=== PATIENT | male | born 1960 | race Caucasian/White ===

== ENCOUNTER 2019-02-03 12:03 | Emergency (ER) | payer OTHER, MEDICAID ==
[~2019-02-03] VITALS: Ht 165.1 cm; Wt 119.0 kg
[2019-02-03 12:06] VITALS: BP 147/72
--- NOTE | 2019-02-03 12:18 | NUR ---
Patient ambulated to bed 7. RN evaluating patient at bedside.
--- NOTE | 2019-02-03 12:20 | NUR ---
Note undone in EDM - 02/03/19 at 1250 by MEDFL C/O LEFT EYE PAIN X 10 DAYS. - EYE DISCHARGE, - REDNESS, + EYE PRESSURE, - BLURRY VISION, DENIES TRAUMA. PT IS AAOX4, VSS AT THIS TIME, BED DOWN, BEDRAIL UP X 1, ER AWARE AND NOTIFIED OF PT STATUS. MED HX: HTN, DM, NSRD
--- NOTE | 2019-02-03 12:20 | NUR ---
C/O LEFT EYE PAIN X 10 DAYS. - EYE DISCHARGE, - REDNESS, + EYE PRESSURE, - BLURRY VISION, DENIES TRAUMA. PT IS AAOX4, VSS AT THIS TIME, BED DOWN, BEDRAIL UP X 1, ER MD AWARE AND NOTIFIED OF PT STATUS. MED HX: HTN, DM, ESRD (RIGHT SIDE)
--- NOTE | 2019-02-03 12:25 | NUR ---
DR. ART AT BEDSIDE ASSESSING PATIENT
--- NOTE | 2019-02-03 13:31 | NUR ---
PT SITTING UP IN BED, RESTING, NO NEW NEEDS AT THIS TIME
--- NOTE | 2019-02-03 13:44 | NUR ---
Dr. Blanco evaluating patient at bedside.
[2019-02-03 13:53] VITALS: BP 143/70
--- NOTE | 2019-02-03 13:53 | NUR ---
Patient discharged with v/s stable. Written and verbal after care instructions given and explained. Patient verbalized understanding. Ambulatory with steady gait. All questions addressed prior to discharge. Advised to follow up with PMD.
== END 2019-02-03 13:53 | disposition home or self-care (01) ==
LOC: MED 12:03
DX: E11.39 Type 2 diabetes mellitus with other diabetic ophthalmic complication (principal); H42 Glaucoma in diseases classified elsewhere; I10 Essential (primary) hypertension
CPT/HCPCS: 99283

== ENCOUNTER 2020-07-04 19:57 | Emergency (ER) | payer OTHER ==
[~2020-07-04] VITALS: Ht 170.2 cm; Wt 124.3 kg
[2020-07-04 19:57] VITALS: BP 178/77
--- NOTE | 2020-07-04 19:57 | NUR ---
PT CHRISTO BAKERS. TAKEN TO BED 4
--- NOTE | 2020-07-04 19:57 | NUR ---
60 Y/O MALE BIBA FROM HOME WITH C/O ABDOMINAL PAIN X 1 DAY. 8/10 PAIN. PT IS CUBAN SPEAKING ONLY. MRI TECH ANDRZEJ KRAUSE STATES PT HAS BEEN VOMITING FLUIDS ONLY SINCE LAST NIGHT. PT HAS ONLY HAD 3 PEACH SLICES, AND GATORADE AT 1530 TODAY. HE MISSED DIALYSIS TODAY DUE TO NOT FEELING WELL. PT WAS GIVE 4MG OF ZOFRAN BY EMS PRIOR TO ARRIVAL AT ER. BG 223 DENIES DIARRHEA, AFEBRILE, SOB, COUGH. R/R EQUAL, AND UNLABORED. SIDE RAIL X2, BED IN LOW POSITION WILL CONTINUE TO MONITOR. NKDA PMH: HTN, ESRD, DM
--- NOTE | 2020-07-04 19:59 | NUR ---
Dr. Levine examining patient.
[2020-07-04] MEDS ORDERED: ONDANSETRON 4 MG/2 ML VIAL IVP ONE (20:05)
[2020-07-04] MEDS ORDERED: MORPHINE SULFATE 4 MG/ML SYR IVP ONE (20:05)
--- NOTE | 2020-07-04 20:23 | NUR ---
PT PLACED ON 2L/MIN NASAL CANNULA
[2020-07-04 20:54] LABS: BASOPHILS % (AUTO) 0.4 % (0.0-2.0); EOSINOPHILS % (AUTO) 0.5 % (0.0-4.0); HEMATOCRIT 40.2 % (36-52); HEMOGLOBIN 13.2 g/dL (12.0-18.0); LYMPHOCYTES # (AUTO) 0.3 K/uL (2.0-11.5); LYMPHOCYTES % (AUTO) 4.8 % (20.5-51.1); MEAN CORPUSCULAR HEMOGLOBIN 30 pg (27-31); MEAN CORPUSCULAR HGB CONC 33 g/dL (33-37); MEAN CORPUSCULAR VOLUME 92.3 fL (80-94); MONOCYTES # (AUTO) 0.3 K/uL (0.8-1.0); MONOCYTES % (AUTO) 4.1 % (1.7-9.3); NEUTROPHILS # (AUTO) 5.9 K/uL (1.8-7.7); NEUTROPHILS % (AUTO) 90.2 % (42.2-75.2); PLATELET COUNT (AUTO) 279 K/uL (140-450); RED BLOOD CELL COUNT(AUTO) 4.36 MIL/uL (4.20-6.10); RED CELL DISTRIBUTION WIDTH 14.7 % (11.6-13.7); WHITE BLOOD COUNT (AUTO) 6.6 K/uL (4.8-10.8)
[2020-07-04 21:07] LABS: ALBUMIN 3.5 g/dL (3.4-5.0); CARBON DIOXIDE 23.3 mmol/L (21-32); MAGNESIUM 2.2 mg/dL (1.8-2.4); PHOSPHORUS 6.1 mg/dL (2.5-4.9); POTASSIUM 5.3 mmol/L (3.5-5.1); TOTAL BILIRUBIN 0.7 mg/dL (0.0-1.0)
--- NOTE | 2020-07-04 21:47 | NUR ---
PT RESTING IN BED QUIETLY. R/R EQUAL, AND UNLABORED. VSS. SIDE RAIL X2, BED IN LOW POSITION. WILL CONTINUE TO MONITOR
[2020-07-04] MEDS ORDERED: SODIUM ZIRCONIUM CYCLOSILICATE 10 GM POWD.PACK PO ONE (22:45)
[2020-07-04 23:14] VITALS: BP 125/59
--- NOTE | 2020-07-04 23:14 | NUR ---
Patient discharged with v/s stable. Written and verbal after care instructions given and explained. Patient verbalized understanding. Wheel Chair Assisted with by caregiver. All questions addressed prior to discharge. Advised to follow up with PMD.
[2020-07-04] MEDS ORDERED: ONDANSETRON 4 MG ODT PO ONE (23:25)
--- NOTE | 2020-07-04 23:36 | NUR ---
DR. DIOR WROTE PRESCRIPTION FOR ZOFRAN 4MG PO FOR PT AT DISCHARGE.
== END 2020-07-04 23:14 | disposition home or self-care (01) ==
LOC: MED 19:57
DX: E11.22 Type 2 diabetes mellitus with diabetic chronic kidney disease (principal); I12.0 Hypertensive chronic kidney disease with stage 5 chronic kidney disease or end stage renal disease; N18.6 End stage renal disease; E87.5 Hyperkalemia; R10.9 Unspecified abdominal pain; Z99.2 Dependence on renal dialysis; Z90.49 Acquired absence of other specified parts of digestive tract
CPT/HCPCS: 36415; 74176; 80053; 83690; 83735; 84100; 84484; 85025; 93005; 96374; 96375; 99285; J2270; J2405; Q0162

== ENCOUNTER 2020-07-10 08:39 | Emergency (ER) | payer OTHER ==
[~2020-07-10] VITALS: Ht 162.6 cm; Wt 95.3 kg
[2020-07-10 08:48] VITALS: BP 130/55
--- NOTE | 2020-07-10 08:48 | NUR ---
W/C ASSIST TO BED 10
[2020-07-10] MEDS ORDERED: ALUMINUM HYD/MAG/SIMETHICONE 30 ML UDC ONE (08:59)
[2020-07-10] MEDS ORDERED: LIDOCAINE VISCOUS 2% 20 ML UDC ONE (08:59)
[2020-07-10] MEDS ORDERED: DICYCLOMINE HCL LIQUID 10 MG/5 ML UDC ONE (08:59)
[2020-07-10] MEDS ORDERED: DICYCLOMINE HCL LIQUID 20 MG, ALUMINUM HYD/MAG/SIMETHICONE 30 ML, LIDOCAINE VISCOUS 2% ... PO ONE ×3 (09:00)
[2020-07-10] MEDS ORDERED: MORPHINE SULFATE 4 MG/ML SYR IM ONE (09:00)
--- NOTE | 2020-07-10 09:10 | NUR ---
60 Y/O MALE C/O N/V X1 WEEK AND ABD PAIN X2 DAY, 10/10 SHARP PAIN. PT ALSO REPORTS SOB/COUGH X1 WEEK. RESP EVEN AND UNLABORED. ABD SOFT/NON DISTENDED. LAST BM: 07/10/2020. AFEBRILE, NO CHILLS AT THIS TIME. VSS. AAOX4.
--- NOTE | 2020-07-10 09:12 | NUR ---
ERMD EVALUATING PT AT BEDSIDE
[2020-07-10] MEDS ORDERED: ONDANSETRON 4 MG/2 ML VIAL IVP ONE (09:30)
[2020-07-10] MEDS ORDERED: MORPHINE SULFATE 4 MG/ML SYR IVP ONE (09:30)
--- NOTE | 2020-07-10 09:45 | NUR ---
PT TAKEN TO CT SCAN
[2020-07-10 09:46] LABS: BASOPHILS # (AUTO) 0.1 K/uL (0.00-0.22); EOSINOPHILS # (AUTO) 0.1 K/uL (0-0.4); HEMATOCRIT 41.9 % (36-52); HEMOGLOBIN 13.8 g/dL (12.0-18.0); LYMPHOCYTES # (AUTO) 0.6 K/uL (2.0-11.5); LYMPHOCYTES % (AUTO) 5.5 % (20.5-51.1); MEAN CORPUSCULAR HEMOGLOBIN 31 pg (27-31); MEAN CORPUSCULAR HGB CONC 33 g/dL (33-37); MEAN CORPUSCULAR VOLUME 93.2 fL (80-94); MONOCYTES # (AUTO) 0.5 K/uL (0.8-1.0); MONOCYTES % (AUTO) 4.9 % (1.7-9.3); NEUTROPHILS # (AUTO) 8.8 K/uL (1.8-7.7); NEUTROPHILS % (AUTO) 87.6 % (42.2-75.2); PLATELET COUNT (AUTO) 298 K/uL (140-450); RED BLOOD CELL COUNT(AUTO) 4.49 MIL/uL (4.20-6.10); RED CELL DISTRIBUTION WIDTH 14.7 % (11.6-13.7); WHITE BLOOD COUNT (AUTO) 10.1 K/uL (4.8-10.8)
[2020-07-10 10:01] LABS: ALBUMIN 3.6 g/dL (3.4-5.0); ANION GAP 19.8 (8-16); CARBON DIOXIDE 26.1 mmol/L (21-32); POTASSIUM 4.9 mmol/L (3.5-5.1); TOTAL BILIRUBIN 0.8 mg/dL (0.0-1.0)
[2020-07-10 10:09] LABS: CREATININE 12.1 mg/dL (0.6-1.3)
[2020-07-10 12:03] VITALS: BP 118/65
--- NOTE | 2020-07-10 12:05 | NUR ---
Patient discharged with v/s stable. Written and verbal after care instructions given and explained. Patient alert, oriented and verbalized understanding of instructions. Ambulatory with steady gait. All questions addressed prior to discharge. ID band removed. Patient advised to follow up with PMD. Rx of MYLANTA given. Patient educated on indication of medication including possible reaction and side effects. Opportunity to ask questions provided and answered.
== END 2020-07-10 12:05 | disposition home or self-care (01) ==
LOC: MED 08:39
DX: E11.22 Type 2 diabetes mellitus with diabetic chronic kidney disease (principal); R10.10 Upper abdominal pain, unspecified; I12.0 Hypertensive chronic kidney disease with stage 5 chronic kidney disease or end stage renal disease; N18.6 End stage renal disease; R11.0 Nausea; Z99.2 Dependence on renal dialysis; Z90.49 Acquired absence of other specified parts of digestive tract; Z98.890 Other specified postprocedural states
CPT/HCPCS: 36415; 74176; 80053; 83690; 85025; 96372; 96374; 96375; 99284; J2270; J2405

== ENCOUNTER 2020-07-13 16:34 | Emergency (ER) | payer OTHER ==
[~2020-07-13] VITALS: Ht 157.5 cm; Wt 115.2 kg
[2020-07-13 16:43] VITALS: BP 180/61
--- NOTE | 2020-07-13 16:43 | NUR ---
BIBA TO BED 10.
--- NOTE | 2020-07-13 16:50 | NUR ---
60 YO MALE MALAYSIAN SPEAKING ONLY BIBA FOR ABDOMINAL PAIN ACCONPANIED BY NAUSEA AND VOMITING FOR 2.5 HOURS, PT WAS SEEN HER ON 07/04/2020 AND 07/10/2020 AND DISCHARGED ABDOMINAL PAIN AND REFERRED TO SEE GI SPECILIST. PT HAS NOT SEEN ANY GI SPECILIST AND IS NOT COMPLIANT TO ANY MEDS FOR HTN AND DIABETES. 4MG ZOFRAN WAS GIVEN BY EMS VIA IV 20 G ON LEFT THUMB, WHICH WAS INSERTED ON SCENE. AAOX4, HR EVEN AND REGULAR; PT DENIES ANY FEVER, CP, SOB, OR COUGH AT THIS TIME; PATIENT STATES PAIN OF 6/10 AT THIS TIME; VSS; PATIENT POSITIONED FOR COMFORT; HOB ELEVATED; BEDRAILS UP X2; BED DOWN. ER MADE AWARE OF PT STATUS. Addendum: 07/13/20 at 1852 by [facility] DIALYSIS SHUNT IS ON RT UPPER ARM WITH INTACT DRESSING.
--- NOTE | 2020-07-13 17:21 | NUR ---
DR. PITT IS EVALUATING PT AT BEDSIDE.
[2020-07-13] MEDS ORDERED: MORPHINE SULFATE 4 MG/ML SYR IVP ONE (17:25)
[2020-07-13] MEDS ORDERED: ALUMINUM HYD/MAG/SIMETHICONE 30 ML UDC PO ONE (17:25)
--- NOTE | 2020-07-13 17:28 | NUR ---
IV 20G ON PT'S LEFT THUMB REMOVED WHICH WAS PLACED BY EMS ON SCENE. GAUZE PLACED ON IV INSERTION AREA TO STOP BLEEDING.
--- NOTE | 2020-07-13 17:50 | NUR ---
SPOKE WITH PT'S CAREGIVE, ANDRZEJ BROWN WAS TOLD PT HAS BEEN EATING CORNSTARCH FOR AT LEAST ONE YEAR. PER ANDRZEJ, PT THINKS EATING CORNSTARCH CAN HELP ME TO HAVE BOWEL MOVEMENTS. WHEN PT IS READY TO BE DISCHARGE, CAN CALL ANDRZEJ FOR VITICULTURIST @[phone].
[2020-07-13 18:35] LABS: BASOPHILS # (AUTO) 0.1 K/uL (0.00-0.22); BASOPHILS % (AUTO) 0.8 % (0.0-2.0); EOSINOPHILS # (AUTO) 0.1 K/uL (0-0.4); EOSINOPHILS % (AUTO) 1.1 % (0.0-4.0); HEMATOCRIT 40.5 % (36-52); HEMOGLOBIN 13.5 g/dL (12.0-18.0); LYMPHOCYTES # (AUTO) 0.4 K/uL (2.0-11.5); LYMPHOCYTES % (AUTO) 4.1 % (20.5-51.1); MEAN CORPUSCULAR HEMOGLOBIN 31 pg (27-31); MEAN CORPUSCULAR HGB CONC 33 g/dL (33-37); MEAN CORPUSCULAR VOLUME 92.1 fL (80-94); MONOCYTES # (AUTO) 0.3 K/uL (0.8-1.0); MONOCYTES % (AUTO) 3.7 % (1.7-9.3); NEUTROPHILS # (AUTO) 8.4 K/uL (1.8-7.7); NEUTROPHILS % (AUTO) 90.3 % (42.2-75.2); PLATELET COUNT (AUTO) 248 K/uL (140-450); RED CELL DISTRIBUTION WIDTH 14.3 % (11.6-13.7); WHITE BLOOD COUNT (AUTO) 9.3 K/uL (4.8-10.8)
[2020-07-13 18:50] LABS: ALBUMIN 3.3 g/dL (3.4-5.0); ANION GAP 12.4 (8-16); CARBON DIOXIDE 31.7 mmol/L (21-32); POTASSIUM 4.1 mmol/L (3.5-5.1); TOTAL BILIRUBIN 0.7 mg/dL (0.0-1.0)
[2020-07-13 18:52] LABS: CREATININE 6.1 mg/dL (0.6-1.3)
--- NOTE | 2020-07-13 19:15 | NUR ---
REPORT RECEIEVED FROM KENIA ROJAS FOR CONTINUITY OF CARE
--- NOTE | 2020-07-13 19:15 | NUR ---
REPORT GAVE TO BOB DYE.
[2020-07-13] MEDS ORDERED: HYDROcodone/APAP 10/325 MG 1 TAB TAB PO ONE (19:30)
[2020-07-13 20:17] VITALS: BP 182/80
--- NOTE | 2020-07-13 20:17 | NUR ---
Patient discharged with v/s stable. Written and verbal after care instructions given and explained. Patient alert, oriented and verbalized understanding of instructions. Wheel Chair Assisted with to lobby. All questions addressed prior to discharge. ID band removed. IV Discontinued. Patient advised to follow up with PMD. Rx of ZOFRAN AND NORCO given. Patient educated on indication of medication including possible reaction and side effects. Opportunity to ask questions provided and answered.
== END 2020-07-13 20:17 | disposition home or self-care (01) ==
LOC: MED 16:34
DX: R10.30 Lower abdominal pain, unspecified (principal); K43.9 Ventral hernia without obstruction or gangrene; E11.9 Type 2 diabetes mellitus without complications; I10 Essential (primary) hypertension; N28.9 Disorder of kidney and ureter, unspecified
CPT/HCPCS: 36415; 80053; 85025; 86140; 96374; 99283; J2270

== ENCOUNTER 2021-11-06 16:51 | Inpatient (IN) | payer OTHER, SELFPAY ==
[~2021-11-06] VITALS: Ht 167.6 cm; Wt 83.9 kg
[2021-11-06 16:53] VITALS: BP 160/61
[2021-11-06 19:22] LABS: BASOPHILS # (AUTO) 0.1 K/uL (0.00-0.22); EOSINOPHILS # (AUTO) 0.3 K/uL (0-0.4); EOSINOPHILS % (AUTO) 5.4 % (0.0-4.0); HEMATOCRIT 33.2 % (36-52); HEMOGLOBIN 10.7 g/dL (12.0-18.0); LYMPHOCYTES # (AUTO) 0.9 K/uL (2.0-11.5); LYMPHOCYTES % (AUTO) 16.3 % (20.5-51.1); MEAN CORPUSCULAR HEMOGLOBIN 27 pg (27-31); MEAN CORPUSCULAR HGB CONC 32 g/dL (33-37); MEAN CORPUSCULAR VOLUME 84.9 fL (80-94); MONOCYTES # (AUTO) 0.8 K/uL (0.8-1.0); MONOCYTES % (AUTO) 14.3 % (1.7-9.3); NEUTROPHILS # (AUTO) 3.6 K/uL (1.8-7.7); PLATELET COUNT (AUTO) 266 K/uL (140-450); RED BLOOD CELL COUNT(AUTO) 3.91 MIL/uL (4.20-6.10); RED CELL DISTRIBUTION WIDTH 16.8 % (11.6-13.7); WHITE BLOOD COUNT (AUTO) 5.6 K/uL (4.8-10.8)
[2021-11-06 19:46] LABS: ALBUMIN 3.4 g/dL (3.4-5.0); ANION GAP 28.7 (8-16); CARBON DIOXIDE 20.1 mmol/L (21-32); TOTAL BILIRUBIN 0.9 mg/dL (0.0-1.0)
[2021-11-06 19:51] LABS: POTASSIUM 6.8 mmol/L (3.5-5.1)
[2021-11-06 19:52] LABS: CREATININE 16.5 mg/dL (0.6-1.3)
[2021-11-06 20:17] LABS: MAGNESIUM 2.4 mg/dL (1.8-2.4)
[2021-11-06 20:21] LABS: PHOSPHORUS 11.1 mg/dL (2.5-4.9)
[2021-11-06] MEDS ORDERED: DEXTROSE 50% 50 ML SYR IVP ONE (22:05)
[2021-11-06] MEDS ORDERED: INSULIN REGULAR, HUMAN 100 UNIT/ML VIAL SUBQ ONE (22:05)
[2021-11-06] MEDS ORDERED: CALCIUM GLUCONATE 10% 1000 MG/10 ML VIAL IVP ONE (22:05)
--- NOTE | 2021-11-06 22:40 | NUR ---
PT TAKEN TO BED 2
--- NOTE | 2021-11-06 22:50 | NUR ---
RECEIVED IN BED 2 FROM TENT WITH C/O H/A AND COUGH. PT WITH CRF HAS MISSED DIALYSIS X 2. WAS REFUSED DIALYSIS TODAY BECAUSE OF COUGH. SHUNT NOTED TO RIGHT ARM. OCCASIONAL COUGH NOTED. SL ESTABLISHED LEFT A/C
[2021-11-06] MEDS ORDERED: CALCIUM CHLORIDE 10% 100 MG/ML SYR IVP ONE (23:00)
[2021-11-06] MEDS ORDERED: POTASSIUM CHLORIDE 10 MEQ TABER PO PRN (23:15)
[2021-11-06] MEDS ORDERED: ACETAMINOPHEN 325 MG TAB PO PRN (23:15)
[2021-11-06] MEDS ORDERED: ONDANSETRON 4 MG/2 ML VIAL IM/IVP PRN (23:15)
[2021-11-06] MEDS ORDERED: HYDROcodone/APAP 7.5/325 MG 1 TAB PO PRN (23:15)
[2021-11-06] MEDS ORDERED: DOCUSATE SODIUM 100 MG GELCAP PO PRN (23:15)
[2021-11-06] MEDS ORDERED: ZOLPIDEM 5 MG TAB PO PRN (23:15)
[2021-11-06] MEDS ORDERED: guaiFENesin DM 200/20 MG-10 ML 10 ML UDC PO PRN (23:15)
[2021-11-06] MEDS ORDERED: hydrALAZINE 20 MG/ML VIAL IVP PRN (23:25)
[2021-11-06] MEDS ORDERED: CALCIUM ACETATE 667 MG TAB PO ONE (23:25)
[2021-11-06 23:52] LABS: PROTHROMBIN TIME 11.3 secs (10.8-13.4)
--- NOTE | 2021-11-07 | NUR ---
WARM BLANKETS GIVEN. ASSISTED WITH REPOSITIONING
[2021-11-07 00:03] LABS: CHOL/HDL RATIO 3.7 (1-4.5); FREE T4 (FREE THYROXINE) 1.42 ng/dL (0.76-1.46); THYROID STIMULATING HORMONE 2.45 uIU/mL (0.34-3.74)
--- NOTE | 2021-11-07 05:00 | NUR ---
MORNING LABS DRAWN
--- NOTE | 2021-11-07 07:55 | NUR ---
PATIENT HAS BEEN SCREENED AND CATEGORIZED MODERATE NUTRITION RISK. PATIENT WILL BE SEEN WITHIN 3-5 DAYS OF ADMISSION. 11/07/21 11/11/[address]
[2021-11-07] MEDS: CALCIUM ACETATE 667 MG TAB PO SCH ×2 (08:00→16:56)
[2021-11-07 08:38] VITALS: BP 148/72
--- NOTE | 2021-11-07 08:42 | NUR ---
Patient will be admitted to care of DR LOYD. Admited to TELE. Will go to room 125B. Belongings list completed. Report to stephanie navarro.
[2021-11-07] MEDS ORDERED: PANTOPRAZOLE 40 MG TABEC PO SCH (09:00)
[2021-11-07] MEDS ORDERED: METOPROLOL 25 MG TAB PO SCH (09:00)
--- NOTE | 2021-11-07 09:00 | NUR ---
RECEIVED REPORT FROM ED NURSE FOR PT TO GO TO ROOM 125B.
--- NOTE | 2021-11-07 09:15 | NUR ---
PT CRITICAL LABS FROM NOVEMBER 06 WERE POTASSIUM 6.8. CREATININE 16.5. PHOSPHORUS 11.1. AND TROPONIN OF 0.242.
--- NOTE | 2021-11-07 09:20 | NUR ---
WOUND CARE EVALUATION NOTE: MID ABDOMEN SURGICAL WOUND ASSESSED WITH PRIMARY RN. PT. AAX4, PER PT. ABD SURGICAL WOUND 2/2 COLON CANCER FEW MONTH BACK. WOUND [id number] TUNNEL WOUND, WOUND BED MOIST, AFTER CLEANSE WITH NS, NO ODOR, NO DRAINAGE, WENDY WOUND SKIN DRY HEALED SCAR TISSUE. DR. LOYD AT BED SIDE. POC DISCUSSED. POC DISCUSSED WITH PT. PT. VERBALIZES UNDERSTANDING. ALL ABOVE CONVERSATION TRANSLATED BY PRIMARY RN. PT. IS SINHALA SPEAKING. RECOMMENDATIONS: -ABDOMINAL WOUND FLUSH WITH NS, PAT DRY, PACK WITH ONE PIECE MOIST KERLIX ROLL AND COVER WITH ISLAND DRESSING QD AND PRN IF SOILING.
--- NOTE | 2021-11-07 09:30 | NUR ---
RECEIVED PT ON FLOOR INTO ROOM 125B. WAS NOT ENDORSED TO ME PUI. SPOKE TO MD AND WE PLACED PATIENT ON PUI SINCE RAPID WAS NEGATIVE BUT PT STILL COUGHING AND SHOWING SYMPTOMS OF COVID.PT IV IS ON LEFT AC. PT VS ARE WNL WITH A ELEVATED BP OF 165/72. PT IS AOX4. PT BREATHING IS EVEN AND UNLABORED. NO S/S OF DISTRESS. PT IS STABLE.
--- NOTE | 2021-11-07 11:00 | NUR ---
ECHO REPORT WAS AN EF OF ABOUT 30-35%. REPORTED TO
[2021-11-07] MEDS ORDERED: GAUZE TP SCH (13:00)
--- NOTE | 2021-11-07 13:00 | NUR ---
PERFORMED WOUND CARE WITH WOUND CARE NURSE ON PT. PT EXPLAINS THAT IT IS FROM A SURGERY WHERE THEY REMOVED A TUMOR IN THE COLON.
--- NOTE | 2021-11-07 13:20 | NUR ---
GAVE PT PRN MED FOR COUGH PER MD ORDER. PT STATES IT HELPED WITH HIS COUGH.
--- NOTE | 2021-11-07 16:00 | NUR ---
PT EKG SHOWED A DROP OF 20-30 HEART RATE. CHECKED ON PT AND THE PT EXPLAINED HE WAS FEELING OKAY AND WENT BACK TO BED. PT BREATHING IS EVEN AND UNLABORED. NO S/S OF DISTRESS. PT IS STABLE AND RESTING.
[2021-11-07] MEDS ORDERED: carvediloL 6.25 MG TAB PO SCH (17:00)
--- NOTE | 2021-11-07 18:30 | NUR ---
PT IS RESTING. BREATHING IS EVEN AND UNLABORED. GAVE PT PRN MEDS FOR COUGH PER MD ORDER. PT IS STATING HE IS TIRED. PT IS NOT SHOWING ANY S/S OF DISTRESS.
--- NOTE | 2021-11-07 19:00 | NUR ---
PT PRESENTS W/ NO SIGNS OF RESPIRATORY DISTRESS SATING 100% ON RA. PT STATES HE FEELS FATIGUED AND WOULD LIKE TO LAY DOWN. WILL CONTINUE TO MONITOR.
--- NOTE | 2021-11-07 19:30 | NUR ---
ENDORSED PT TO CONSERVATION SCIENCE OFFICER NURSE FOR CONTINUITY OF CARE.
--- NOTE | 2021-11-07 19:45 | NUR ---
WENT TO PATIENT'S ROOM PER BOB LYONS SAYING THERE IS AN EMERGENCY. FOUND PATIENT, RESTING IN BED, COMPLAINING THAT HE IS NOT FEELING GOOD. VS CHECKED - T - 98.0, HR -FLUCTUATING 45 - 53, BP , RR - 20- 154/114, 02 SATURATION - 98 - 100% ON 4 LITERS VIA N/C. PATIENT STILL ABLE TO RESPOND TO QUESTIONS.
--- NOTE | 2021-11-07 20:00 | NUR ---
Was informed of assignment that FRED was assigned to patient as primary nurse and I was assigned as supervisory IV nurse. Fred informed me of patient current status and that MD was being notified and pending further orders. Will monitor patient and care progress.
--- NOTE | 2021-11-07 20:05 | NUR ---
SPOKE WITH DR. VILLATORO, INFORMED PATIENT IS WITH BRADYCARDIA, HR IN THE 40'S BUT 02 SAT - 98 - 100%, BP - 82/44. ORDERED TRANSFER TO ICU, DR. MC AND DR. VARMA CONSULT.
--- NOTE | 2021-11-07 20:10 | NUR ---
TO PATIENT'S ROOM PER DENIA DOW TO CHECKED PATIENT IMMEDIATELY. RT AT THE BEDSIDE, 02 SAT - 100% BUT PATENT BECAME UNRESPONSIVE. CODE BLUE WAS REQUESTED TO BE ANNOUNCED.
--- NOTE | 2021-11-07 20:10 | NUR ---
RESPONDED TO REQUEST FOR SERVICE. PT PRESENTS LAYING IN BED SATING 100% ON 4LPM N/C. PT BECAME UNRESPONSIVE, CODE BLUE WAS CALLED, CPR WAS STARTED. ASSISTED DR WITH EMERGENCY INTUBATION.
--- NOTE | 2021-11-07 20:12 | NUR ---
Was informed that patient was not responsive and CODE was started.
--- NOTE | 2021-11-07 20:42 | NUR ---
PRONOUNCED BY LIZ ABURTO, DR. AVILA.
--- NOTE | 2021-11-07 20:45 | NUR ---
CODE team called TOD at 2041. Was able to contact patient brother and speak to family which notified me that Sayra patient's daughter was going to make decisions regarding patient will contact.
--- NOTE | 2021-11-07 23:45 | NUR ---
PER FOREST FIRE MANAGEMENT OFFICER THE NURSE IN CHARGE FOR REMAINS WILL FAX THE MEDICAL DOCUMENTS TO [facility] - WILL INFORM SABINA ABOUT IT
--- NOTE | 2021-11-07 23:46 | NUR ---
INFORM SABINA SHE HAVE TO FAX THE DOCUMENTS TO [facility] - SABINA VERBALIZES THE UNDERSTANDING .
--- NOTE | 2021-11-08 02:05 | NUR ---
RELEASED THE BODY TO [facility],WITH [employer]INO SHIFT MANAGER TONA SIGNING THE RELEASE OF REMAINS DOCUMENT, ALSO WITNESS BY NURSE MACHINE FEATHEREDGER AND REDUCER VIOLETTA.
[2021-11-08 07:07] LABS: T4 (THYROXINE) 7.5 ug/dL (4.5-12.0)
[2021-11-08] MEDS ORDERED: ATORVASTATIN 80 MG TAB PO SCH (09:00)
[2021-11-08] MEDS ORDERED: ECOTRIN 81 MG TABEC PO SCH (09:00)
== END 2021-11-08 02:29 | DRG 208 ==
LOC: MED 16:51 → MTU 23:09 → MMU 11-07 04:34
PROVIDERS: ADMIT Family Medicine; ATTEND Family Medicine
PROC: 5A12012 Performance of Cardiac Output, Single, Manual (ICD-10-PCS; principal; 2021-11-07)
PROC: 5A1935Z Respiratory Ventilation, Less than 24 Consecutive Hours (ICD-10-PCS; 2021-11-07)
PROC: 0BH17EZ Insertion of Endotracheal Airway into Trachea, Via Natural or Artificial Opening (ICD-10-PCS; 2021-11-07)
DX: J96.01 Acute respiratory failure with hypoxia (principal); J18.9 Pneumonia, unspecified organism; I50.43 Acute on chronic combined systolic (congestive) and diastolic (congestive) heart failure; I21.A1 Myocardial infarction type 2; N17.0 Acute kidney failure with tubular necrosis; N18.6 End stage renal disease; I13.2 Hypertensive heart and chronic kidney disease with heart failure and with stage 5 chronic kidney disease, or end stage renal disease; K63.2 Fistula of intestine; I42.9 Cardiomyopathy, unspecified; D63.8 Anemia in other chronic diseases classified elsewhere; I46.9 Cardiac arrest, cause unspecified; Z20.822 Contact with and (suspected) exposure to COVID-19; E11.22 Type 2 diabetes mellitus with diabetic chronic kidney disease; E83.39 Other disorders of phosphorus metabolism; E87.5 Hyperkalemia; Z99.2 Dependence on renal dialysis
CPT/HCPCS: 36415; 71045; 80053; 82150; 82948; 83036; 83690; 83735; 83880; 84100; 84436; 84439; 84443; 84479; 84484; 85025; 85610; 85730; 86886; 86900; 86901; 86920; 87081; 92950; 93005; 96374; 96375; 97163-GP; 99285; J0696; J1644; J1815; J7060; U0003